=== PATIENT | female | born 1980 | race Caucasian/White ===

== ENCOUNTER 2018-01-30 08:46 | Day surgery (SDC) | payer OTHER ==
[~2018-01-30] VITALS: Ht 170.2 cm; Wt 95.3 kg
[~2018-01-30 08:46] MED LIST: CLINDAMYCIN 600 MG/4 ML VIAL ONE; DESFLURANE 240 ML BTL INH ONE; ONDANSETRON 4 MG/2 ML VIAL ONE; PROPOFOL 200 MG/20 ML VIAL IV ONE; ROCURONIUM 50 MG/5 ML VIAL IV ONE
[2018-01-30] MEDS ORDERED: fentaNYL 0.05 MG/ML VIAL ONE (10:23)
[2018-01-30] MEDS ORDERED: HYDROmorphone PFS 2 MG/ML SYR ONE (10:23)
[2018-01-30] MEDS ORDERED: DESFLURANE 240 ML BTL INH ONE (10:36)
[2018-01-30] MEDS ORDERED: DEXAMETHASONE 4 MG/ML VIAL ONE (10:36)
[2018-01-30] MEDS ORDERED: ceFAZolin 1,000 MG VIAL ONE (10:36)
[2018-01-30] MEDS ORDERED: METOCLOPRAMIDE 10 MG/2 ML INJ VIAL ONE (10:36)
[2018-01-30] MEDS ORDERED: ROCURONIUM 50 MG/5 ML VIAL IV ONE (10:36)
[2018-01-30] MEDS ORDERED: KETOROLAC 30 MG/ML VIAL ONE (10:36)
[2018-01-30] MEDS ORDERED: GLYCOPYRROLATE 0.2 MG/ML VIAL ONE (10:36)
[2018-01-30] MEDS ORDERED: ONDANSETRON 4 MG/2 ML VIAL ONE (10:36)
[2018-01-30] MEDS ORDERED: PHENYLEPHRINE 10 MG/ML VIAL ONE (10:36)
[2018-01-30] MEDS ORDERED: PROPOFOL 200 MG/20 ML VIAL IV ONE (10:36)
[2018-01-30] MEDS ORDERED: BUPIVACAINE-MPF 0.25% 30 ML VIAL INJ ONE (10:40)
[2018-01-30] MEDS ORDERED: HYDROmorphone 1 MG/ML AMP IVP PRN (11:35)
[2018-01-30] MEDS ORDERED: ONDANSETRON 4 MG/2 ML VIAL IVP SCH (12:00)
[2018-01-30] MEDS ORDERED: PROMETHAZINE 25 MG/ML VIAL IM SCH (12:30)
[2018-01-30] MEDS ORDERED: MORPHINE SULFATE 4 MG/ML SYR IVP PRN (13:15)
[2018-01-30] MEDS ORDERED: PROMETHAZINE 25 MG/ML VIAL IM PRN (14:10)
[2018-01-30] MEDS ORDERED: PROMETHAZINE 25 MG/ML VIAL ONE (14:13)
== END 2018-01-30 15:38 | disposition home or self-care (01) ==
LOC: MDS 08:46 → MMU 08:47 → MDS 15:38
PROVIDERS: ATTEND Surgery
DX: K80.20 Calculus of gallbladder without cholecystitis without obstruction (principal); E66.9 Obesity, unspecified; Z88.8 Allergy status to other drugs, medicaments and biological substances; Z98.890 Other specified postprocedural states
CPT/HCPCS: 36415; 47562; 71045; 82374; 86886; 86900; 86901; J0690; J1100; J1170; J1885; J2270; J2370; J2405; J2550; J2704; J2765; J3010; J3490; J7030; J7120; J7060

== ENCOUNTER 2018-01-31 18:02 | Emergency (ER) | payer OTHER ==
[~2018-01-31] VITALS: Ht 170.2 cm; Wt 98.6 kg
[2018-01-31 18:09] VITALS: BP 147/72
--- NOTE | 2018-01-31 18:12 | NUR ---
PT AMBULATES TO BED 5
--- NOTE | 2018-01-31 18:15 | NUR ---
37Y/F BIB SELF C/O NON RADIATING RT SHOULDER PAIN TODAY S/P CHOLILITHIASIS YESTERDAY. PATIENT POSITIONED FOR COMFORT; HOB ELEVATED; BEDRAILS UP X1; BED DOWN. ER MD MADE AWARE OF PT STATUS.
--- NOTE | 2018-01-31 20:22 | NUR ---
Dr. White evaluating patient at bedside.
[2018-01-31 21:42] VITALS: BP 147/72
== END 2018-01-31 21:42 | disposition home or self-care (01) ==
LOC: MED 18:02
DX: S46.911A Strain of unspecified muscle, fascia and tendon at shoulder and upper arm level, right arm, initial encounter (principal); X58.XXXA Exposure to other specified factors, initial encounter; Y93.89 Activity, other specified; Y92.89 Other specified places as the place of occurrence of the external cause; Y99.8 Other external cause status
CPT/HCPCS: 73030; 99284; Q0092

== ENCOUNTER 2018-10-02 18:46 | Emergency (ER) | payer OTHER ==
[~2018-10-02] VITALS: Ht 170.2 cm; Wt 97.5 kg
[2018-10-02 18:51] VITALS: BP 119/79
[2018-10-02] MEDS: NACL 0.9% 1,000 ML IV ONE (20:02)
[2018-10-02] MEDS: ONDANSETRON 4 MG/2 ML VIAL IVP ONE (20:06)
[2018-10-02] MEDS: MORPHINE SULFATE 4 MG/ML SYR IVP ONE (20:10)
[2018-10-02 21:10] VITALS: BP 129/82
== END 2018-10-02 21:10 | disposition home or self-care (01) ==
LOC: MED 18:46
DX: R10.13 Epigastric pain (principal); R11.2 Nausea with vomiting, unspecified; R19.7 Diarrhea, unspecified; Z90.49 Acquired absence of other specified parts of digestive tract; Z88.1 Allergy status to other antibiotic agents; Z88.8 Allergy status to other drugs, medicaments and biological substances
CPT/HCPCS: 81002; 81025; 96361; 96374; 96375; 99283; J2270; J2405; J7030